=== PATIENT | female | born 1975 | race Caucasian/White ===

== ENCOUNTER → 2024-04-27 | Outpatient (CLI) | payer BC ==
[2024-04-27 06:59] LABS: Urine Bacteria None Seen /hpf (None Seen)
[2024-04-27 07:09] LABS: Basophils # (auto) 0 10 ^3/uL (0-0.2); Basophils % (auto) 0.7 % (0.0-2.0); Eosinophils # (auto) 0.1 10 ^3/uL (0-0.8); Eosinophils % (auto) 1.9 % (0.0-7.0); Hematocrit 39.5 % (36.0-46.0); Lymphocytes # (auto) 1.8 10 ^3/uL (0.4-5.4); Lymphocytes % (auto) 28.9 % (10.0-50.0); Mean Corpuscular Hemoglobin 31.2 pg (28.0-32.0); Mean Corpuscular Hgb Conc. 35.3 g/dL (32.0-36.0); Mean Corpuscular Volume 88.3 fL (80.0-100.0); Monocytes # (auto) 0.5 10 ^3/uL (0-1.3); Monocytes % (auto) 7.8 % (0.0-12.0); Neutrophils # (auto) 3.7 10 ^3/uL (1.6-8.6); Neutrophils % (auto) 60.7 % (37.0-80.0); Nucleated Red Blood Cells % 0.1 %; Red Blood Cells 4.48 10^6/uL (4.0-5.20); Red Cell Distribution Width 12.8 % (11.8-14.3); White Blood Cell 6.1 10^3/uL (4.4-10.8)
[2024-04-27 07:18] LABS: Urine Blood 1+ /uL (Negative); Urine Clarity Clear (Clear); Urine Color Light-Yellow (Yellow); Urine Mucus FEW (None Seen); Urine Protein, UAD Negative (Negative); Urine Specific Gravity 1.026 (1.001-1.035); Urine Urobilinogen Normal (Negative); Urine WBC 1 /hpf (0 - 5)
[2024-04-27 07:46] LABS: Erythrocyte Sedimentation Rate 9 mm/hr (0-20)
[2024-04-27 07:49] LABS: Alanine Aminotransferase 15 U/L (7-40); Albumin 4.4 g/dL (3.2-4.8); Alkaline Phosphatase 84 U/L (46-116); Anion Gap 7 (5-15); Aspartate Aminotransferase 13 U/L (13-40); BUN/Creatinine Ratio 18.2 (10.0-20.0); Blood Urea Nitrogen 14 mg/dL (9-23); Calcium 9.7 mg/dL (8.5-10.1); Carbon Dioxide 26 mmol/L (20-30); Chloride 106 mmol/L (98-107); Cholesterol 225 mg/dL (< 200); Glucose 108 mg/dL (74-106); HDL Cholesterol 62 mg/dL (40-59); LDL Cholesterol 120 mg/dL (< 100); Potassium 4.1 mmol/L (3.5-5.1); Sodium 139 mmol/L (136-145); Triglycerides 196 mg/dL (< 150)
[2024-04-27 07:50] LABS: Bilirubin, Total 0.5 mg/dL (0.2-1.0)
[2024-04-27 08:09] LABS: Uric Acid 4.1 mg/dL (3.1-7.8)
[2024-04-28 08:07] LABS: Anti-Nuclear Antibody Direct Negative (Negative); Anti-dsDNA Antibody <1 IU/mL (0-9); Antiscleroderma-70 Antibody <0.2 AI (0.0-0.9); Complement C3 159 mg/dL (82-167); RNP Antibody <0.2 AI (0.0-0.9); Rheumatoid Arthritis Factor <10.0 IU/mL (<14.0); Sjogren's Anti-SS-A Antibody <0.2 AI (0.0-0.9); Sjogren's Anti-SS-B Antibody <0.2 AI (0.0-0.9); Smith Antibody <0.2 AI (0.0-0.9); Thyroid Peroxidase (TPO) Ab <9 IU/mL (0-34)
== END | disposition home or self-care (01) ==
LOC: LAB 06:44
PROVIDERS: ATTEND Internal Medicine
DX: Z00.00 Encounter for general adult medical examination without abnormal findings (principal); M25.551 Pain in right hip; M54.2 Cervicalgia
CPT/HCPCS: 36415; 80053; 80061; 81001; 82306; 82607; 83036; 84207; 84443; 84550; 85025; 85652; 86160; 86225; 86235; 86376; 86431

== ENCOUNTER → 2024-11-09 | Outpatient (CLI) | payer BC ==
[2024-11-09 09:15] LABS: CRP High Sensitivity 0.49 mg/dL (<1.0); Erythrocyte Sedimentation Rate 9 mm/hr (0-20)
[2024-11-09 09:16] LABS: Albumin 4.9 g/dL (3.2-4.8); Bilirubin, Direct 0.1 mg/dL (<0.3); Bilirubin, Total 0.5 mg/dL (0.2-1.0); Total Protein 7.5 g/dL (5.7-8.2)
[2024-11-09 10:27] LABS: Carcinoembryonic Antigen < 0.50 ng/mL (<=5.0)
== END | disposition home or self-care (01) ==
LOC: LAB 08:01
PROVIDERS: ATTEND Internal Medicine
DX: N83.209 Unspecified ovarian cyst, unspecified side (principal); R16.0 Hepatomegaly, not elsewhere classified
CPT/HCPCS: 36415; 80076; 82378; 82670; 84144; 84403; 85652; 86141

== ENCOUNTER → 2024-12-19 | Outpatient (CLI) | payer BC ==
[2024-12-19 11:21] LABS: Urine Bacteria None Seen /hpf (None Seen)
[2024-12-19 11:47] LABS: INR 0.97 (0.9-1.15); Partial Thromboplastin Time 25.9 SEC (24.5-34.5); Prothrombin Time 10.3 sec (9.3-11.8)
[2024-12-19 11:51] LABS: Urine Blood 1+ /uL (Negative); Urine Clarity Clear (Clear); Urine Color Light-Yellow (Yellow); Urine Protein, UAD Negative (Negative); Urine Specific Gravity 1.023 (1.001-1.035); Urine Squamous Epithelial Cell FEW /hpf (<5); Urine Urobilinogen Normal (Negative); Urine WBC 1 /HPF (0-5); Urine pH 5.5 (5.0-9.0)
[2024-12-19 12:02] LABS: Basophils # (auto) 0 10 ^3/uL (0-0.2); Basophils % (auto) 0.6 % (0.0-2.0); Eosinophils # (auto) 0.1 10 ^3/uL (0-0.8); Eosinophils % (auto) 1.3 % (0.0-7.0); Hematocrit 37.6 % (36.0-46.0); Hemoglobin 13.3 g/dL (12.2-16.2); Lymphocytes # (auto) 1.8 10 ^3/uL (0.4-5.4); Lymphocytes % (auto) 26.5 % (10.0-50.0); Mean Corpuscular Hgb Conc. 35.3 g/dL (32.0-36.0); Mean Corpuscular Volume 87.7 fL (80.0-100.0); Monocytes # (auto) 0.4 10 ^3/uL (0-1.3); Monocytes % (auto) 5.4 % (0.0-12.0); Neutrophils # (auto) 4.5 10 ^3/uL (1.6-8.6); Neutrophils % (auto) 66.2 % (37.0-80.0); Platelet Count (auto) 286 10^3/uL (140-450); Red Blood Cells 4.28 10^6/uL (4.0-5.20); Red Cell Distribution Width 13.2 % (11.8-14.3); White Blood Cell 6.8 10^3/uL (4.4-10.8)
[2024-12-19 12:19] LABS: Alanine Aminotransferase 15 U/L (7-40); Alkaline Phosphatase 86 U/L (46-116)
[2024-12-19 12:20] LABS: Albumin 4.6 g/dL (3.2-4.8); Amylase 63 U/L (30-118); Anion Gap 10 (5-15); BUN/Creatinine Ratio 16.3 (10.0-20.0); Blood Urea Nitrogen 13 mg/dL (9-23); Carbon Dioxide 25 mmol/L (20-31); Chloride 105 mmol/L (98-107); Glucose 102 mg/dL (74-106); Potassium 4.1 mmol/L (3.5-5.1); Sodium 140 mmol/L (136-145); Total Protein 7.2 g/dL (5.7-8.2)
[2024-12-19 12:21] LABS: Bilirubin, Total 0.4 mg/dL (0.2-1.0); Leuteinizing Hormone 4.9 IU/L
[2024-12-19 12:22] LABS: Aspartate Aminotransferase 13 U/L (13-40); Lipase 57 U/L (12-53)
[2024-12-19 14:48] LABS: Follicle Stimulating Hormone 4.21 IU/L (SEE BELOW)
== END | disposition home or self-care (01) ==
LOC: LAB 11:03
PROVIDERS: ATTEND Internal Medicine
DX: K74.60 Unspecified cirrhosis of liver (principal); N83.201 Unspecified ovarian cyst, right side; E78.5 Hyperlipidemia, unspecified; R10.9 Unspecified abdominal pain
CPT/HCPCS: 36415; 80053; 81001; 81025; 82150; 82670; 83001; 83002; 83690; 84144; 84403; 85025; 85610; 85730

== ENCOUNTER 2024-12-23 07:24 | Day surgery (SDC) | payer BC ==
[~2024-12-23] VITALS: Ht 160 cm; Wt 73.5 kg
[2024-12-23] MEDS ORDERED: SODIUM CHLORIDE LOCK 10 ML ONE (07:44)
[2024-12-23] MEDS: diphenhdrAMINE HCL 50 MG/1 ML VL ONE (08:32)
[2024-12-23] MEDS: fentaNYL CITRATE 100 MCG/2 ML VL ONE (08:32)
[2024-12-23] MEDS: MIDAZOLAM HCL 5 MG/ML-1ML VIAL ONE ×2 (08:32→08:53)
[2024-12-23 09:10] VITALS: PULSE 83; RESP 12; TEMP 97.3; O2SAT 100
[2024-12-23 09:20] VITALS: PULSE 70; RESP 13; O2SAT 100
--- NOTE | 2024-12-23 09:29 | DVHNC2 ---
Procedure - DATE OF PROCEDURE: December 23, 2024 SURGEON: SUYAPA NOEL MD REFERRING PROVIDER: Jhon Antonio MD PROCEDURE PERFORMED: 1. Esophagogastroduodenoscopy with moderate sedation 2. Esophagogastroduodenoscopy with biopsy 3. Colonoscopy with moderate sedation 4. Colonoscopy with polypectomy with cold biopsy PRE-PROCEDURE DIAGNOSIS: 1. Colon cancer screening 2. GERD refractory retreatment 3. Abdominal pain 4. Constipation 4. Hematochezia POSTPROCEDURE DIAGNOSIS: 1. Mild gastritis 2. Small gastric polyp 3. Mild erosive esophagitis LA grade A Z-line at 38 cm 4. Internal and external hemorrhoids 5. Small sigmoid polyps likely hyperplastic INDICATIONS FOR PROCEDURE: The patient is a 49-year-old female with GERD refractory to treatment, constipation and hematochezia who presents for outpatient endoscopy and colonoscopy. MEDICATIONS USED: 11 mg of Versed IV and 100 mcg IV and 50 mg of Benadryl for IV was given in incremental doses DETAILS OF THE PROCEDURE: Informed consent was obtained after risks, benefits, and alternatives, were discussed at length with the patient. The patient gave consent to the procedure as well as the medication used for sedation. The patient was placed in the left lateral decubitus position. An Olympus endoscope was inserted into the oropharynx and advanced into the esophagus, then into the stomach, then into the duodenal bulb and duodenum. The scope was then withdrawn. The duodenum was normal in appearance. The scope was withdrawn into the stomach. The stomach showed mild gastritis in the body and antrum, biopsies were taken and sent for pathology. Retroflexion showed no evidence of a hiatal hernia. There was several small gastric polyps and one was removed and sent for pathology. The scope was then withdrawn. The esophagus showed very minimal erosive esophagitis with the Z-line at 38 cm. The scope was withdrawn and the procedure completed. The patient tolerated the procedure well. The patient remained in the left lateral decubitus position. Digital rectal exam showed internal hemorrhoids and external hemorrhoids. An Olympus variable torsion pediatric colonoscope was inserted into the rectum and advanced to the cecum. The cecum was identified by the ileocecal valve and the appendiceal orifice. The scope was then withdrawn. The prep was good with little amounts of liquid stool. The patient had a several small sigmoid polyps removed with cold biopsy forceps. They were hyperplastic in appearance. There were no large polyps, masses, strictures, diverticulosis, or arteriovenous malformation seen. More than six minutes withdrawal time was noted. Retroflexion showed 1 + internal hemorrhoids. The patient tolerated the procedure well [facility]OWEL PREP SCORE: 8 COLONOSCOPY START TIME: 846 CECUM TIME: 856 COLONOSCOPY END TIME: 906 IMPRESSION: 1. Small Internal hemorrhoids and small external hemorrhoids 2. Several small colon polyps in the sigmoid likely hyperplastic removed with cold biopsy forceps 3. Mild erosive esophagitis 4. Mild erosive gastritis 5. Several small gastric polyps RECOMMENDATIONS: 1. Follow up in GI clinic for procedure and pathology results 2. High-fiber diet 3. Follow up with primary care physician 4. Repeat colonoscopy pending pathology if hyperplastic 7-10 years and if adenomas 3-5 years. 5. Anti-reflux precautions 6. Continue with proton pump inhibitor daily I WOULD LIKE TO THANK DR. ANTONIO FOR THIS REFERRAL SUYAPA ONEL MD Dec 23, 2024 09:29
[2024-12-23 10:10] VITALS: BP 106/57; PULSE 70; RESP 13; O2SAT 96
== END 2024-12-23 10:20 | disposition home or self-care (01) ==
LOC: GI 07:24
PROVIDERS: ATTEND Specialist
DX: K92.1 Melena (principal); K63.5 Polyp of colon; K31.7 Polyp of stomach and duodenum; K29.50 Unspecified chronic gastritis without bleeding; K22.10 Ulcer of esophagus without bleeding; K59.00 Constipation, unspecified; K21.9 Gastro-esophageal reflux disease without esophagitis; K64.8 Other hemorrhoids; K64.4 Residual hemorrhoidal skin tags; Z98.51 Tubal ligation status
CPT/HCPCS: 43239; 45380; 88305; 88312; 88342; J1200; J2250; J3010; 99152; 99153